=== PATIENT | male | born 1945 | race Caucasian/White ===

== ENCOUNTER 2021-07-10 10:50 | Emergency (ER) | payer OTHER ==
[~2021-07-10] VITALS: Ht 170.2 cm; Wt 77.0 kg
[2021-07-10] MEDS ORDERED: NAPROXEN 375MG TABLET PO ONE (11:15)
[2021-07-10] MEDS ORDERED: HYDROCODONE/ACETAMINOPHEN 5/325MG TABLET PO ONE (11:15)
[2021-07-10] MEDS ORDERED: NAPR-679 MT (14:37)
[2021-07-10] MEDS ORDERED: BACITRACIN ZINC OINT UDPKT TOP ONE (16:15)
[2021-07-10 16:40] VITALS: BP 115/77
== END 2021-07-10 17:00 | disposition home or self-care (01) ==
LOC: ER 10:50
DX: S80.812A Abrasion, left lower leg, initial encounter (principal); M79.605 Pain in left leg; M54.9 Dorsalgia, unspecified; I10 Essential (primary) hypertension; I73.00 Raynaud's syndrome without gangrene; W01.0XXA Fall on same level from slipping, tripping and stumbling without subsequent striking against object, initial encounter; Y93.89 Activity, other specified; Y92.9 Unspecified place or not applicable
CPT/HCPCS: 72100; 72192; 73130; 73521; 73552; 73560; 73590; 73610; 73630; 99284